=== PATIENT | female | born 1990 | race American Indian/Alaskan Native ===

== ENCOUNTER 2020-05-07 20:51 | Emergency (ER) | payer OTHER ==
--- NOTE | 2020-05-08 00:20 | Emergency Department Report ---
ED Syncope HPI - General Chief Complaint: Syncope Stated Complaint: SYNCOPE Time Seen by Provider: 05/08/20 00:06 Source: patient Exam Limitations: no limitations - History of Present Illness Initial Comments: This is a 29-year-old female with history of asthma who [place] Patient tripped and fell and injured her right thumb. Her thumb nail was pulled back from the finger causing it to bleed. When she saw the blood she became dizzy and fell into a trash can. She has bruise to her nose. Bruise to her upper lip. Laceration to her lower lip. She feels fine at this time. EMS recommended evaluation. She wants to ensure that she is cleared to fly home to [place]. She did have syncopal episode when she fell. She fainted which caused the impact to the face. Timing/Prior Episodes: no prior history, single episode today Precipitating Factors: Positive: injury (Right thumb injury) Context: other (Fainting episode after seeing blood) Loss of Consciousness: brief (seconds) Current Symptoms: back to normal - Related Data Allergies/Adverse Reactions: Allergies No Known Allergies Allergy (Unverified 05/07/20 23:01) ED Review of Systems ROS: Stated complaint: SYNCOPE Other details as noted in HPI Comment: All other systems reviewed and negative Constitutional: denies: fever, malaise Respiratory: denies: cough Cardiovascular: denies: chest pain Gastrointestinal: denies: abdominal pain Skin: lesions ED Past Medical Hx - Past Medical History Previous Medical History?: Yes Hx Asthma: Yes - Surgical History Past Surgical History?: No - Social History Smoking Status: Never Smoker Substance Use Type: None ED Physical Exam - General Limitations: No Limitations General appearance: alert, in no apparent distress - Head Head exam: Present: normocephalic, other (Faint bruising right side of nasal bridge without deformity, 1 cm ecchymosis left upper lip, superficial 1 cm vertical laceration left lower lip not involving the vermilion border) - Eye Eye exam: Present: normal appearance - ENT ENT exam: Present: mucous membranes moist - Neck Neck exam: Present: normal inspection, full ROM - Respiratory Respiratory exam: Present: normal lung sounds bilaterally. Absent: respiratory distress, wheezes, rales, rhonchi - Cardiovascular Cardiovascular Exam: Present: regular rate, normal rhythm, normal heart sounds. Absent: systolic murmur, diastolic murmur, rubs, gallop - GI/Abdominal GI/Abdominal exam: Present: soft, normal bowel sounds. Absent: distended, tenderness, guarding, rebound - Extremities Exam Extremities exam: Present: normal inspection, other (right thumb: intact nail, no bleeding, no deformity) - Neurological Exam Neurological exam: Present: alert, oriented X3 - Psychiatric Psychiatric exam: Present: normal affect, normal mood - Skin Skin exam: Present: warm, dry, intact, normal color. Absent: rash ED Course Vital Signs 05/07/20 22:40 Temperature 97.7 F Pulse Rate 76 Respiratory 18 Rate Blood Pressure 110/72 O2 Sat by Pulse 99 Oximetry ED Medical Decision Making - Medical Decision Making 1. Vasovagal syncope at the site of blood: I do not suspect arrhythmia pulmonary embolism. Patient is pain-free at this time without risk factors of VTE. 2. Close head injury: Due to normal physical exam CT head not indicated at this time 3. Superficial lip laceration: Laceration does not require suture repair. Patient given wound care instructions 4. Facial contusions of lip and nose patient given reassurance Critical care attestation.: If time is entered above; I have spent that time in minutes in the direct care of this critically ill patient, excluding procedure time. ED Disposition Clinical Impression: Syncope, Minor head injury, Lip laceration, Nasal contusion, Contusion, lip Disposition: DC-01 TO HOME OR SELFCARE Is pt being admited?: No Does the pt Need Aspirin: No Condition: Stable Instructions: Syncope (ED), Minor Head Injury (ED)
[2020-05-08 00:56] VITALS: BP 112/76
== END 2020-05-08 00:40 | disposition home or self-care (01) ==
LOC: ED 20:51
DX: S01.511A Laceration without foreign body of lip, initial encounter (principal); S09.90XA Unspecified injury of head, initial encounter; R55 Syncope and collapse; J45.909 Unspecified asthma, uncomplicated; W01.0XXA Fall on same level from slipping, tripping and stumbling without subsequent striking against object, initial encounter; Y93.89 Activity, other specified; Y92.89 Other specified places as the place of occurrence of the external cause; Y99.8 Other external cause status
CPT/HCPCS: 99282